=== PATIENT | female | born 1960 | race Caucasian/White ===

== ENCOUNTER 2017-08-13 16:27 | Emergency (ER) | payer OTHER, SELFPAY ==
[2017-08-13 16:38] VITALS: BP 137/77; PULSE 84; RESP 18; TEMP 36.8; O2SAT 99; BMI 22.6
--- NOTE | 2017-08-13 16:43 | DI.RAD.S_ITS ---
PROCEDURE: XR FOOT RT MIN 3V INDICATIONS: crush injury TECHNIQUE: 3 views of the foot were acquired. COMPARISON: None. FINDINGS: Bones: No dislocations. No suspicious bony lesions. There is a mildly comminuted but only minimally displaced set of fractures involving the distal phalanx of the first toe, best seen on the lateral and AP views of the digits. More proximally the hindfoot, midfoot and forefoot visualized appears free of appreciable dramatic injury. Soft tissues: No tibiotalar joint effusion. Achilles tendon appears normal. IMPRESSION: Longitudinal fractures, minimally displaced, involves the distal phalanx of the great toe. No additional injury found. Dictated by: Leonardo Licea M.D. on 08/13/2017 at 17:15 Approved by: Leonardo Licea M.D. on 08/13/2017 at 17:16
--- NOTE | 2017-08-13 17:54 | ED_ITS ---
HPI - Extremity Injury (Lower) <Oksana Echavarria PA-C - Last Filed: 08/13/17 22:15> General Chief Complaint: Extremity Injury, Lower Stated Complaint: RT FOOT INJURY Time Seen by Provider: 08/13/17 17:32 Source: patient Mode of arrival: ambulatory Limitations: no limitations History of Present Illness HPI Narrative: This generally healthy 57-year-old female dropped a large piece of pottery on her right foot shortly prior to arrival and has had pain since. Pain increases with any movement or trying to bear weight. She denies any other injury. She denies any paresthesia or weakness in the foot and states movement is limited due to pain Related Data Previous Rx's Medication Instructions Recorded ondansetron [Zofran ODT] 4 mg PO Q6H PRN #10 tab 08/13/17 tramadol 50 mg PO Q6H PRN #10 tab 08/13/17 Allergies Allergy/AdvReac Type Severity Reaction Status Date / Time Sulfa (Sulfonamide Allergy Verified 08/13/17 16:42 Antibiotics) Review of Systems <SRINIVAS Izaguirre Last Filed: 08/13/17 22:15> Review of Systems All systems reviewed & are unremarkable except as noted in HPI and below Exam <Oksana Echavarria PA-C - Last Filed: 08/13/17 22:15> Narrative Exam Narrative: GENERAL APPEARANCE: Patient sitting comfortably, in no distress. LUNGS: Clear to auscultation bilaterally. HEART: Rate and rhythm regular without murmur, normal S1 and S2, no S3 or S4. MUSCULOSKELETAL: There is no effusion over the right foot or ankle, but right great toe is moderately edematous. She has no point tenderness over the right ankle or metatarsals. She is exquisitely tender over the right great toe mid to distal, no point tenderness elsewhere. She has limited great toe pointer and dorsiflexion secondary to tenderness. She has full range of motion of the ankle. NEUROVASCULAR: Right foot is warm and pink with brisk cap refill, pedal pulses intact and sensation grossly intact DERM: Eccymoses over R. great toe pad Initial Vital Signs Initial Vital Signs: Vital Signs Temperature 98.3 F 08/13/17 16:38 Pulse Rate 84 08/13/17 16:38 Respiratory Rate 18 08/13/17 16:38 Blood Pressure 137/77 H 08/13/17 16:38 Pulse Oximetry 99 08/13/17 16:38 <Casimiro Tamayo MD - Last Filed: 08/14/17 03:13> Initial Vital Signs Initial Vital Signs: Vital Signs Temperature 98.3 F 08/13/17 16:38 Pulse Rate 84 08/13/17 16:38 Respiratory Rate 18 08/13/17 16:38 Blood Pressure 137/77 H 08/13/17 16:38 Pulse Oximetry 99 08/13/17 16:38 Course <Oksana Echavarria PA-C - Last Filed: 08/13/17 22:15> Orders Ordered: Discontinued Medications Ibuprofen (Advil) 800 mg PO NOW ONE Stop: 08/13/17 17:55 Last Admin: 08/13/17 18:02 Dose: 800 mg Vital Signs - 8 hr 08/13/17 16:38 Temperature 98.3 F Pulse Rate 84 Respiratory Rate 18 Blood Pressure 137/77 H Pulse Oximetry 99 <Casimiro Tamayo MD - Last Filed: 08/14/17 03:13> Orders Ordered: Discontinued Medications Ibuprofen (Advil) 800 mg PO NOW ONE Stop: 08/13/17 17:55 Last Admin: 08/13/17 18:02 Dose: 800 mg Vital Signs - 8 hr 08/13/17 16:38 Temperature 98.3 F Pulse Rate 84 Respiratory Rate 18 Blood Pressure 137/77 H Pulse Oximetry 99 MDM - Extremity Injury (Lower) <Oksana Echavarria PA-C - Last Filed: 08/13/17 22:15> Imaging Data extremity: Radiologist's impression: View Report History [address] [address] XRay Report Signed Patient: SANDEEP MIRANDA MR#: [id number] : 1960 Acct:[id number] Age/Sex: 57 / F Date of Service: 08/13/17 Loc: ED Accession Number: [id number] Procedure: XR foot RT min 3V Ordering Provider: Shalini Zepeda D.O. PROCEDURE: XR FOOT RT MIN 3V INDICATIONS: crush injury TECHNIQUE: 3 views of the foot were acquired. COMPARISON: None. FINDINGS: Bones: No dislocations. No suspicious bony lesions. There is a mildly comminuted but only minimally displaced set of fractures involving the distal phalanx of the first toe, best seen on the lateral and AP views of the digits. More proximally the hindfoot, midfoot and forefoot visualized appears free of appreciable dramatic injury. Soft tissues: No tibiotalar joint effusion. Achilles tendon appears normal. IMPRESSION: Longitudinal fractures, minimally displaced, involves the distal phalanx of the great toe. No additional injury found. Dictated by: Leonardo Licea M.D. on 08/13/2017 at 17:15 Approved by: Leonardo Licea M.D. on 08/13/2017 at 17:16 Discharge Plan Departure Patient Disposition: Home, Self-Care Clinical Impression: Closed fracture of great toe of right foot Discharge Date/Time: 08/13/17 18:59 Interventions: ED Discharge Assessment Last Done: 08/13/17 18:59 Instructions: DI for Toe Fracture Activity Restrictions/Additional Instructions: Keep your 2nd and big toes taped together at all times. You may wish to put some cotton or gauze in between. Wear the orthopedic shoe whenever your bearing weight. Continue ice as helpful. Continue ibuprofen 3-4 tablets every 8 hr for the next couple of days, then 2 tablets every 8 hr as needed. I have given you some prescription pain medicine (do not take it and drive) to use as needed for the next day or so, as well as some nausea medicine to take beforehand if needed. Please return if you have any acutely worsening symptoms as we talked about, otherwise please call Podiatry at [facility] on Wednesday and let them know you were seen in the emergency room and would like to schedule follow-up for a toe fracture. Prescriptions: New tramadol 50 mg tablet 50 mg PO Q6H PRN (Reason: toe pain) Qty: 10 RF: 0 ondansetron [Zofran ODT] 4 mg tablet,disintegrating 4 mg PO Q6H PRN (Reason: nausea ) Qty: 10 RF: 0 Referrals: [facility] [Provider Group] <Casimiro Tamayo MD - Last Filed: 08/14/17 03:13> Cosign ED Attending Floresature Attestation: I was available in the ER department for consultation and assistance if necessary. I agree with the content of the note and the treatment plan.
[2017-08-13] MEDS: IBUPROFEN 400 MG TABLET 800 MG PO (18:02)
== END 2017-08-13 18:59 | disposition home or self-care (01) ==
PROVIDERS: Emergency Provider Internal Medicine
DX: S92.401A Displaced unspecified fracture of right great toe, initial encounter for closed fracture (principal); W23.0XXA Caught, crushed, jammed, or pinched between moving objects, initial encounter
CPT/HCPCS: 73630; 99282; 99283

== ENCOUNTER → 2018-04-12 07:29 | Outpatient (CLI) | payer OTHER, SELFPAY ==
[2018-04-12 08:58] LABS: Add Manual Diff / Slide Review NO; Basophils Absolute Auto 0 /uL (0-100); Basophils Percent Auto 0.7 % (0-2); Eosinophils Absolute Auto 200 /uL (0-450); Eosinophils Percent Auto 4.3 % (2-4); Hematocrit 45.8 % (36-46); Hemoglobin 15.1 g/dL (12.0-16.0); Lymphocytes Absolute Auto 900 /uL (1100-4500); Lymphocytes Percent Auto 21.9 % (25-40); Mean Corpuscular Volume 93.8 fL (80-100); Monocytes Absolute Auto 300 /uL (0-900); Monocytes Percent Auto 7.7 % (3-14); Neutrophils Absolute Auto 2800 /uL (1500-7000); Neutrophils Percent Auto 65.4 % (50-75); Platelet Count 249 X10^3/uL (150-400); Red Blood Cell Count 4.88 X10^6/uL (4.0-5.2); Red Cell Distribution Width 13.1 % (11.6-14.8); White Blood Cell Count 4.2 X10^3/uL (4.5-11.0)
[2018-04-12 09:17] LABS: Alanine Aminotransferase 33 IU/L (9-52); Albumin 4.5 g/dL (3.5-5.0); Albumin Globulin Ratio 1.4 (1.0-2.8); Alkaline Phosphatase 60 U/L (38-126); Aspartate Aminotransferase 26 IU/L (14-36); BUN Creatinine Ratio 22.2 (6-22); Bilirubin Total 0.6 mg/dL (0.2-1.3); Blood Urea Nitrogen 20 mg/dL (7-17); Calcium 9.5 mg/dL (8.4-10.2); Carbon Dioxide 31 mmol/L (22-32); Chloride 103 mmol/L (98-107); Cholesterol 172 mg/dL (140-199); Estimated Glomerular Filt Rate > 60.0 mL/min (>60); Globulin 3.2 g/dL (1.7-4.1); Glucose 99 mg/dL (70-100); HDL Cholesterol 61 mg/dL (40-60); HEMOLYSIS < 15 (0-50); LDL Cholesterol Calculated 97 mg/dL (<100); Potassium 3.9 mmol/L (3.4-5.1); Sodium 141 mmol/L (137-145); Total Protein 7.7 g/dL (6.3-8.2); Triglycerides 72 mg/dL (35-150)
== END ==
DX: Z13.228 Encounter for screening for other metabolic disorders (principal); Z13.220 Encounter for screening for lipoid disorders; Z13.0 Encounter for screening for diseases of the blood and blood-forming organs and certain disorders involving the immune mechanism; Z13.29 Encounter for screening for other suspected endocrine disorder
CPT/HCPCS: 36415; 80053; 80061; 84443; 85025

== ENCOUNTER → 2018-04-13 09:53 | Outpatient (CLI) | payer OTHER, SELFPAY | DX: M85.852 Other specified disorders of bone density and structure, left thigh (principal); Z78.0 Asymptomatic menopausal state; K92.9 Disease of digestive system, unspecified | CPT/HCPCS: 77080 ==

== ENCOUNTER → 2019-10-02 13:49 | Outpatient (CLI) | payer OTHER, SELFPAY ==
--- NOTE | 2019-10-02 13:50 | DI.RAD.S_ITS ---
PROCEDURE: XR HAND LT MIN 3V INDICATIONS: pull injury, swelling/pain 2nd metacarpal and phalanx TECHNIQUE: 3 views of the hand(s) acquired. COMPARISON: None. FINDINGS: Bones: No fractures or dislocations. Carpal bones are normally aligned. No suspicious bony lesions. Soft tissues: No suspicious soft tissue calcifications. IMPRESSION: No trauma found. Dictated by: Leonardo Licea M.D. on 10/02/2019 at 14:11 Approved by: Leonardo Licea M.D. on 10/02/2019 at 14:12
== END ==
PROVIDERS: Referring Provider Physician Assistant; Visit Provider Physician Assistant
DX: S69.92XA Unspecified injury of left wrist, hand and finger(s), initial encounter (principal); X50.0XXD Overexertion from strenuous movement or load, subsequent encounter
CPT/HCPCS: 73130

== ENCOUNTER → 2019-11-21 07:46 | Outpatient (CLI) | payer OTHER, SELFPAY | PROVIDERS: Referring Provider Internal Medicine; Visit Provider Internal Medicine | DX: Z23 Encounter for immunization (principal) | CPT/HCPCS: 90471; 90686 ==

== ENCOUNTER → 2021-07-30 07:10 | Outpatient (CLI) | payer OTHER, SELFPAY ==
[2021-07-30 07:36] LABS: Add Manual Diff / Slide Review NO; Basophils Absolute Auto 0 /uL (0-100); Basophils Percent Auto 0.7 % (0-2); Eosinophils Absolute Auto 100 /uL (0-450); Eosinophils Percent Auto 3.3 % (2-4); Hematocrit 41.3 % (36-46); Hemoglobin 13.9 g/dL (12.0-16.0); Lymphocytes Absolute Auto 1100 /uL (1100-4500); Lymphocytes Percent Auto 27.8 % (25-40); Mean Corpuscular HGB Conc 33.6 % (30-36); Mean Corpuscular Volume 92.3 fL (80-100); Monocytes Absolute Auto 300 /uL (0-900); Monocytes Percent Auto 8.7 % (3-14); Neutrophils Absolute Auto 2300 /uL (1500-7000); Neutrophils Percent Auto 59.5 % (50-75); Platelet Count 232 X10^3/uL (150-400); Red Blood Cell Count 4.47 X10^6/uL (4.0-5.2); Red Cell Distribution Width 12.9 % (11.6-14.8); White Blood Cell Count 3.9 X10^3/uL (4.5-11.0)
[2021-07-30 07:48] LABS: Erythrocyte Sedimentation Rate 5 MM/HR (0-20)
[2021-07-30 08:04] LABS: Alanine Aminotransferase 24 IU/L (<35); Albumin 4.3 g/dL (3.5-5.0); Albumin Globulin Ratio 1.5 (1.0-2.8); Alkaline Phosphatase 69 U/L (38-126); Aspartate Aminotransferase 30 IU/L (14-36); BUN Creatinine Ratio 25.8 (6-22); Bilirubin Total 0.7 mg/dL (0.2-1.3); Blood Urea Nitrogen 23 mg/dL (7-17); C-Reactive Protein Quant < 0.5 mg/dL (<1.0); Calcium 8.9 mg/dL (8.4-10.2); Carbon Dioxide 28 mmol/L (22-32); Chloride 105 mmol/L (98-107); Cholesterol 191 mg/dL (140-199); Estimated Glomerular Filt Rate > 60 mL/min (>60); Globulin 2.9 g/dL (1.7-4.1); Glucose 104 mg/dL (80-110); HDL Cholesterol 81 mg/dL (40-60); HEMOLYSIS < 15 (0-50); LDL Cholesterol Calculated 96 mg/dL (<100); Sodium 139 mmol/L (137-145); Total Protein 7.2 g/dL (6.3-8.2); Triglycerides 68 mg/dL (35-150)
[2021-07-30 08:43] LABS: Thyroid Stimulating Hormone 1.58 uIU/mL (0.47-4.68)
[2021-08-01 17:05] LABS: ANA Screen, IFA Negative (.)
== END ==
PROVIDERS: PCP Physician Assistant; Referring Provider Physician Assistant; Visit Provider Physician Assistant
DX: R68.2 Dry mouth, unspecified (principal); H04.123 Dry eye syndrome of bilateral lacrimal glands; K62.89 Other specified diseases of anus and rectum; G89.29 Other chronic pain; Z13.220 Encounter for screening for lipoid disorders
CPT/HCPCS: 36415; 80053; 80061; 84443; 85025; 85651; 86038; 86140

== ENCOUNTER → 2021-08-04 08:03 | Outpatient (CLI) | payer OTHER, SELFPAY ==
[2021-08-04 12:23] LABS: Sample 1 Time DAY 1
[2021-08-04 12:24] LABS: Occult Blood 1 Negative (Negative); Occult Blood 2 Negative (Negative); Occult Blood 3 Negative (Negative); Sample 2 time DAY 2; Sample 3 time DAY 3
== END ==
PROVIDERS: PCP Physician Assistant; Referring Provider Physician Assistant; Visit Provider Physician Assistant
DX: K62.89 Other specified diseases of anus and rectum (principal); G89.29 Other chronic pain
CPT/HCPCS: 82270

== ENCOUNTER → 2021-12-18 12:09 | Outpatient (CLI) | payer OTHER, SELFPAY ==
[2021-12-18 16:44] LABS: Estradiol, Total 23.3 pg/mL
== END ==
PROVIDERS: PCP Physician Assistant; Referring Provider Naturopath; Visit Provider Naturopath
DX: R19.7 Diarrhea, unspecified (principal); R10.9 Unspecified abdominal pain; N95.1 Menopausal and female climacteric states
CPT/HCPCS: 36415; 82670; 86003

== ENCOUNTER → 2022-02-26 07:58 | Outpatient (CLI) | payer OTHER, SELFPAY ==
[2022-02-26 08:28] LABS: Add Manual Diff / Slide Review NO; Basophils Absolute Auto 0 /uL (0-100); Basophils Percent Auto 1.4 % (0-2); Eosinophils Absolute Auto 100 /uL (0-450); Eosinophils Percent Auto 2.9 % (2-4); Hematocrit 39.6 % (36-46); Hemoglobin 13.3 g/dL (12.0-16.0); Lymphocytes Absolute Auto 1000 /uL (1100-4500); Lymphocytes Percent Auto 28.2 % (25-40); Mean Corpuscular HGB Conc 33.6 % (30-36); Mean Corpuscular Hemoglobin 30.9 PG (26-34); Mean Corpuscular Volume 91.9 fL (80-100); Monocytes Absolute Auto 300 /uL (0-900); Monocytes Percent Auto 8.9 % (3-14); Neutrophils Absolute Auto 2100 /uL (1500-7000); Neutrophils Percent Auto 58.6 % (50-75); Platelet Count 243 X10^3/uL (150-400); Red Blood Cell Count 4.31 X10^6/uL (4.0-5.2); Red Cell Distribution Width 12.3 % (11.6-14.8); White Blood Cell Count 3.6 X10^3/uL (4.5-11.0)
[2022-02-26 09:10] LABS: Estradiol, Total 16.6 pg/mL
[2022-02-26 09:19] LABS: Ferritin 37 ng/mL (11-264)
[2022-02-26 09:51] LABS: Folate 18.7 ng/mL (2.76-20.0); Vitamin B12 300 pg/mL (239-931)
[2022-03-04 20:53] LABS: Estrogen 141 pg/mL (40-244)
== END ==
PROVIDERS: PCP Physician Assistant; Referring Provider Naturopath; Visit Provider Naturopath
DX: N95.1 Menopausal and female climacteric states (principal); R51.9 Headache, unspecified; R79.9 Abnormal finding of blood chemistry, unspecified
CPT/HCPCS: 36415; 82607; 82670; 82672; 82728; 82746; 85025

== ENCOUNTER → 2022-10-14 08:13 | Outpatient (CLI) | payer OTHER, SELFPAY ==
[2022-10-14 09:19] LABS: Estimated Glomerular Filt Rate > 60 mL/min (>60)
== END ==
PROVIDERS: Radiology Diagnostic Radiology; PCP Acupuncturist; Referring Provider Acupuncturist; Visit Provider Acupuncturist
DX: R10.32 Left lower quadrant pain (principal)
CPT/HCPCS: 36415; 82565

== ENCOUNTER → 2022-10-15 08:03 | Outpatient (CLI) | payer OTHER, SELFPAY ==
--- NOTE | 2022-10-15 | DI.CT.S_ITS ---
PROCEDURE: CT ABDOMEN PELVIS W CON INDICATIONS: Left lower quadrant pain TECHNIQUE: After the administration of oral and intravenous contrast, axial sections were acquired from the lung bases to the pubic symphysis. Coronal and sagittal reformats were performed. For radiation dose reduction, the following was used: automated exposure control, adjustment of mA and/or kV according to patient size. COMPARISON: None. FINDINGS: Lung bases: No pleural effusion. ABDOMEN: Liver: A few scattered small hypodensities are present, too small to characterize. Gallbladder: Unremarkable. Biliary ducts: Unremarkable. Pancreas: Unremarkable. Spleen: Unremarkable. Adrenal Glands: Unremarkable. 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 A 10 mm stone is present within the proximal ureter of the lower moiety. There is adjacent urothelial thickening and enhancement. Mild hydronephrosis of the inferior left moiety also present. It is unclear if/where the two left ureters converge. No right hydronephrosis. A few punctate nonobstructing right renal stones also present. Stomach and Bowel: No bowel obstruction. Moderate predominantly sigmoid colonic diverticulosis without evidence of acute diverticulitis. Peritoneum: No abnormal intraperitoneal fluid. No free air. Abdominal Nodes: No retroperitoneal or mesenteric adenopathy by size criteria. Vessels: Aorta and inferior vena cava are normal in size. PELVIS: Pelvic Organs: Unremarkable. Bladder: Unremarkable. Pelvic Nodes: No enlarged lymph nodes. Bones: Multilevel degenerative change of the visualized spine. 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 A 10 mm stone is present within the proximal ureter of the lower moiety with mild upstream hydronephrosis. Adjacent urothelial thickening and enhancement is present, probably reactive. It is not clear if/where the two left ureters converge, or if there is complete duplication of the left urinary system and two ureteral insertions into the urinary bladder. Dictated by: Cal Lunsford M.D. on 10/15/2022 at 14:43 Approved by: Cal Lunsford M.D. on 10/15/2022 at 15:09
== END ==
PROVIDERS: PCP Acupuncturist; Referring Provider Acupuncturist; Visit Provider Acupuncturist
DX: K57.30 Diverticulosis of large intestine without perforation or abscess without bleeding (principal); N13.2 Hydronephrosis with renal and ureteral calculous obstruction; R10.32 Left lower quadrant pain
CPT/HCPCS: 74177; Q9967

== ENCOUNTER 2022-11-10 18:57 | Emergency (ER) | payer OTHER, SELFPAY ==
[2022-11-10] VITALS (9 sets, daily range): BP systolic 115–179; BP diastolic 57–99; PULSE 56–89; RESP 16; TEMP 36.9; O2SAT 91–99; BMI 24.1
--- NOTE | 2022-11-10 19:00 | ED.GENADULT ---
HPI - General Adult General Chief complaint: Urogenital-Female Stated complaint: POST SURGERY FOR KIDNEY STONES/IN PAIN Time Seen by Provider: 11/10/22 19:00 History of Present Illness HPI narrative: 62-year-old female nonsmoker with out chronic medical history presents with her in the chief complaint of worsening left lower quadrant pain. She states that she had a large kidney stone addressed by lithotripsy at [facility] on Wednesday. She is been having pain ever since discharge but it seems to be worse today. She called the on-call urologist and was instructed to come here for evaluation. She states the pain is rather persistent and without obvious provocation or palliation. She denies any radiation of her symptoms. She has nausea but denies vomiting. She is had no fever or chills. She denies any trouble urinating though does admit there was blood in it. She denies any change in bowel habits and has no constipation or diarrhea. Related Data Home Medications Medication Instructions Recorded Confirmed lifitegrast 5 % eye drops in a EYE-BOTH BID 05/14/18 11/28/21 dropperette (Xiidra) Previous Rx's Medication Instructions Recorded mupirocin 2 % topical ointment 1 applic topical BID #30 grams 02/09/19 hydrocodone 5 mg-acetaminophen 325 1 tab PO Q4-6H PRN pain #10 tabs 11/10/22 mg tablet ketorolac 10 mg tablet 10 mg PO Q6H PRN pain #14 tabs 11/10/22 ondansetron 4 mg disintegrating 4 mg PO TID-QID PRN nausea and 11/10/22 tablet vomiting #10 tabs oxycodone 5 mg tablet 5 mg PO Q6H PRN pain #10 tabs 11/10/22 pantoprazole 40 mg tablet,delayed 40 mg PO DAILY #30 tabs 11/10/22 release (Protonix) Allergies Allergy/AdvReac Type Severity Reaction Status Date / Time Sulfa (Sulfonamide Allergy Verified 11/10/22 19:05 Antibiotics) Review of Systems Review of Systems Narrative: GENERAL: Denies chills, fatigue, malaise, fever, sweats. HEENT: Denies sinus pain, ear pain, sore throat, difficulty swallowing, dizziness. RESPIRATORY: Denies dyspnea, cough, wheezing, hemoptysis, sputum. CARDIOVASCULAR: Denies chest pain, palpitations, orthopnea, edema, GASTROINTESTINAL: Denies nausea, vomiting, abdominal pain, diarrhea, constipation, melena. : See HPI MUSCULOSKELETAL: denies weakness, joint pain, or bony pain SKIN: Denies rash, skin lesions, or other NEUROLOGIC: Denies weakness, headache, numbness, change in speech, confusion, seizures, incoordination. PSYCHIATRIC: No concerning psychosocial issues. 12 point review of systems is negative except for those stated above Patient History Medical History Healthy female Injury of left hand Social History Smoking Status: Never smoker Smoking Status: Never smoker alcohol intake frequency: holidays/special occasions only Substance Use Type: does not use Exam Narrative Exam Narrative: GENERAL: [62] year old patient appears stated age. Well-developed patient, in mild distress. HEAD: Atraumatic. Normocephalic. EYES: Pupils equal round and reactive. Extraocular motions intact. No scleral icterus. No injection or drainage. ENT: Nose without bleeding, purulent drainage. Throat without erythema, tonsillar hypertrophy or exudate. Airway patent. NECK: Trachea midline. Non tender CARDIOVASCULAR: Regular rate and rhythm without murmurs, gallops, or rubs. RESPIRATORY: Clear to auscultation. Breath sounds equal bilaterally. No wheezes, rales, or rhonchi. GASTROINTESTINAL: Abdomen soft, non-tender, nondistended. EXTREMITIES: No edema or joint tenderness. BACK: Nontender without deformity or crepitance. No flank tenderness. NEURO: AOx3. SKIN: No rash or erythema of visible areas Initial Vital Signs Initial Vital Signs: Vital Signs Temperature 98.4 F 11/10/22 19:03 Pulse Rate 89 11/10/22 19:03 Respiratory Rate 16 11/10/22 19:03 Blood Pressure 179/99 H 11/10/22 19:03 Pulse Oximetry 97 11/10/22 19:03 Oxygen Delivery Method Room Air 11/10/22 19:03 Course Orders Ordered: ED Orders 11/10/22 19:10 Complete Blood Count AUTO DIFF Stat Comprehensive Metabolic Panel Stat 11/10/22 19:12 CT kidney ureter bladder (KUB) Stat 11/10/22 20:51 Urine Culture Stat Urine Microscopic Stat Discontinued Medications Hydromorphone HCl (Hydromorphone 0.5 Mg Inj) 0.5 mg IV NOW ONE Stop: 11/10/22 19:13 Last Admin: 11/10/22 19:20 Dose: 0.5 mg Documented By: MIGUEL ANGEL Sodium Chloride (Normal Saline 0.9%) 1,000 mls @ 1,000 mls/hr IV BOLUS ONE Stop: 11/10/22 21:17 Last Infusion: 11/10/22 22:36 Dose: 0 mls/hr Documented By: MIGUEL ANGEL Admin: 11/10/22 20:52 Dose: 1,000 mls/hr Documented By: MIGUEL ANGEL Ketorolac Tromethamine (Ketorolac 30 Mg/Ml Vial) 15 mg IV NOW ONE Stop: 11/10/22 19:13 Last Admin: 11/10/22 19:20 Dose: 15 mg Documented By: MIGUEL ANGEL Ondansetron HCl (Ondansetron 4 Mg/2 Ml Inj) 4 mg IV NOW ONE Stop: 11/10/22 20:14 Last Admin: 11/10/22 20:17 Dose: 4 mg Documented By: PASHA Ondansetron HCl (Ondansetron 4 Mg Odt Prepack) 1 bottle MISC SEEINSTR ONE Stop: 11/10/22 22:12 Last Admin: 11/10/22 22:24 Dose: 1 bottle Documented By: MIGUEL ANGEL Pantoprazole Sodium (Pantoprazole 40 Mg Vial) 40 mg IV NOW ONE Stop: 11/10/22 21:14 Last Admin: 11/10/22 21:20 Dose: 40 mg Documented By: MIGUEL ANGEL Vital Signs Vital signs: Vital Signs - 8 hr 11/10/22 19:03 11/10/22 19:46 11/10/22 20:00 Temperature 98.4 F Pulse Rate 89 60 Respiratory Rate 16 Blood Pressure 179/99 H 115/67 Pulse Oximetry 97 95 Oxygen Delivery Method Room Air 11/10/22 20:00 11/10/22 20:30 11/10/22 21:00 Temperature Pulse Rate 57 L 72 56 L Respiratory Rate Blood Pressure Pulse Oximetry 91 97 91 Oxygen Delivery Method 11/10/22 21:19 11/10/22 21:19 11/10/22 21:30 Temperature Pulse Rate 70 Respiratory Rate Blood Pressure 122/57 L 124/64 Pulse Oximetry 99 Oxygen Delivery Method 11/10/22 21:30 11/10/22 22:00 11/10/22 22:00 Temperature Pulse Rate 59 L 68 Respiratory Rate 16 Blood Pressure 116/58 L Pulse Oximetry 91 96 Oxygen Delivery Method 11/10/22 22:30 11/10/22 22:30 Temperature Pulse Rate 82 Respiratory Rate 16 Blood Pressure 119/77 Pulse Oximetry 98 Oxygen Delivery Method Medical Decision Making Lab Data 11/10/22 19:10 11/10/22 19:10 Labs: Lab Results 11/10/22 11/10/22 11/10/22 Range/Units 19:10 19:10 20:51 WBC 5.6 (4.5-11.0) X10^3/uL RBC 4.39 (4.0-5.2) X10^6/uL Hgb 13.6 (12.0-16.0) g/dL Hct 39.9 (36-46) % MCV 90.9 (80-100) fL MCH 31.1 (26-34) PG MCHC 34.2 (30-36) % RDW 12.4 (11.6-14.8) % Plt Count 250 (150-400) X10^3/uL Neut % (Auto) 46.7 L (50-75) % Lymph % (Auto) 40.3 H (25-40) % [place] % (Auto) 8.5 (3-14) % Eos % (Auto) 3.4 (2-4) % Baso % (Auto) 1.1 (0-2) % Neut # (Auto) 2600 (0820-7725) /uL Lymph # (Auto) 2300 (4276-1468) /uL [place] # (Auto) 500 (0-900) /uL Eos # (Auto) 200 (0-450) /uL Baso # (Auto) 100 (0-100) /uL Sodium 136 L (137-145) mmol/L Potassium 4.4 (3.4-5.1) mmol/L Chloride 104 (98-107) mmol/L Carbon Dioxide 23 (22-32) mmol/L BUN 28 H (7-17) mg/dL Creatinine 0.92 (0.52-1.04) mg/dL Estimated GFR > 60 (>60) mL/min BUN/Creatinine Ratio 30.4 H (6-22) Glucose 94 (80-110) mg/dL Calcium 9.7 (8.4-10.2) mg/dL Total Bilirubin 0.5 (0.2-1.3) mg/dL AST 42 H (14-36) IU/L ALT 36 H (<35) IU/L Alkaline Phosphatase 92 (38-126) U/L Total Protein 7.7 (6.3-8.2) g/dL Albumin 4.4 (3.5-5.0) g/dL Globulin 3.3 (1.7-4.1) g/dL Albumin/Globulin Ratio 1.3 (1.0-2.8) Urine RBC 10-30/hpf H (0-5/HPF) Urine WBC 5-10/hpf H (0-5/HPF) Ur Squamous Epith Cells None seen (0-5/HPF) Urine Bacteria Occasional (0-1) (None) Ur Culture Indicated? Specimen cultured Urine Dip Bedside Urine Glucose Negative Bedside Urine Bilirubin - Negative Bedside Urine Ketone - Negative Urine Specific [place] 1.010 Bedside Urine Occult Blood +++ Bedside Urine pH 6.0 Bedside Urine Protein + 30 Bedside Urine Urobilinogen - Negative Bedside Urine Nitrite + Positive Bedside Urine Leukocytes + 70 Esterase Point of care testing: Urine Dip Bedside Urine Glucose Negative Bedside Urine Bilirubin - Negative Bedside Urine Ketone - Negative Urine Specific [place] 1.010 Bedside Urine Occult Blood +++ Bedside Urine pH 6.0 Bedside Urine Protein + 30 Bedside Urine Urobilinogen - Negative Bedside Urine Nitrite + Positive Bedside Urine Leukocytes + 70 Esterase MDM Narrative Medical decision making narrative: [62] year old patient presents with left lower quadrant pain Multiple etiologies for patient's symptoms considered including, but not limited to: [Postsurgical complication, kidney stone versus UTI versus other] Prior Charts reviewed in our EMR Primary Historian: patient Labs reviewed and interpreted by myself: No leukocytosis or left shift, no signs of anemia, electrolytes and renal function within normal. RBCs 10-30, WBC 5-10 Imaging reviewed: CT KUB with moderate hydro without obstructing stone noted. Consultations: discussed with congressional representative urology at [facility] ([place]). We have discussed the patient's history and physical exam as well as our findings including the urine, serum labs and imaging. We sure the opinion that this is all very reassuring, there is no sign of infection or need for further intervention, her pain is well controlled, she is tolerating orals and the small level of WBCs in the urine is not uncommon after recent procedure, he recommends against antibiotics at this time. Patient's symptoms improved over duration of stay with above-stated therapies. Findings and discharge diagnosis discussed with patient/family followed by verbalization of understanding Return precautions discussed with patient/family whom verbalize understanding of diagnosis and plan Discharge Plan Departure Patient Disposition: Home Clinical Impression: Acute flank pain Instructions: DI for Flank Pain Activity Restrictions/Additional Instructions: *You have been diagnosed with [left flank pain. As we discussed your labs and imaging are reassuring. I spoke with on-call Urology at [facility] and he too is comfortable with you going home at this point with follow-up] *What to do: *Please continue to take your regular medications as directed. [x ] New medication prescriptions sent to your pharmacy: [[facility] ] [ ] New medication written as a paper prescription [ ] No new medications given *Please follow up with your urology care provider in 2-3 days, call for an appointment. Let them know you were seen in the Emergency Department and that we ask that you be seen in follow up. We will electronically transmit a record of today's note if your PCP is in our system *Return to Emergency Department if you should have any new, worsening or concerning symptoms, such as [fever greater than 101 F, shaking chills, worsening pain, persistent vomiting or other bothersome symptoms] Prescriptions: New hydrocodone-acetaminophen 5-325 mg tablet 1 tab PO Q4-6H PRN (Reason: pain) Qty: 10 0RF ketorolac 10 mg tablet 10 mg PO Q6H PRN (Reason: pain) Qty: 14 0RF pantoprazole [Protonix] 40 mg tablet,delayed release (DR/EC) 40 mg PO DAILY Qty: 30 0RF oxycodone 5 mg tablet 5 mg PO Q6H PRN (Reason: pain) Qty: 10 0RF ondansetron 4 mg tablet,disintegrating 4 mg PO TID-QID PRN (Reason: nausea and vomiting) Qty: 10 0RF No Action Xiidra 5 % dropperette EYE-BOTH BID mupirocin 2 % ointment 1 applic TOP BID Qty: 30 0RF Referrals: Vicki Morales ND [Primary Care Provider] - Stand Alone Forms: Patient Portal/API
--- NOTE | 2022-11-10 19:12 | DI.CT.S_ITS ---
PROCEDURE: CT KIDNEY URETER BLADDER (KUB) INDICATIONS: severe LLQ pain, recent lithotripsy TECHNIQUE: Axial sections were acquired from the lung bases to the pubic symphysis. Coronal and sagittal reformats were performed. For radiation dose reduction, the following was used: automated exposure control, adjustment of mA and/or kV according to patient size. COMPARISON: None. FINDINGS: Image quality: Excellent. Lung bases: Unremarkable. Heart: No significant findings. URINARY: Right Kidney: Moderate burden punctate, nonobstructing stones. No hydronephrosis. Right Ureter: No hydroureter. Left Kidney: Small burden of punctate, nonobstructing stones. Duplicated renal collecting system. The superior moiety does not have hydronephrosis. There is moderate hydronephrosis the inferior moiety. Left Ureter: Moderate hydronephrosis of the lower moiety, but no obstructing mass identified. Possible ectopic insertion the left ureter, although this is not confirmed on this noncontrast study. Bladder: Normal wall thickness. No stones. ABDOMEN: Liver: Unremarkable. Gallbladder: Unremarkable. Biliary ducts: Unremarkable. Pancreas: Unremarkable. Spleen: Unremarkable. Adrenal Glands: Unremarkable. Stomach and Bowel: Colonic diverticulosis without evidence of diverticulitis. Peritoneum: No abnormal intraperitoneal fluid. No free air. Ventral Wall: No hernia. Abdominal Nodes: No enlarged retroperitoneal or mesenteric lymph nodes. Vessels: Aorta and inferior vena cava are normal in size. PELVIS: Pelvic Organs: Unremarkable. Pelvic Nodes: Unremarkable. Miscellaneous: No inguinal hernias are seen. Bones: Unremarkable. 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 There is moderate hydronephrosis and hydroureter of the lower moiety, without obstructing stone present. Differential includes recently passed stones or infection. Dictated by: Eddie Small M.D. on 11/10/2022 at 20:00 Approved by: Eddie Small M.D. on 11/10/2022 at 20:06
[2022-11-10] MEDS: HYDROMORPHONE 0.5 MG INJ IV (19:20)
[2022-11-10] MEDS: KETOROLAC 30 MG/ML VIAL 15 MG IV (19:20)
[2022-11-10 19:24] LABS: Add Manual Diff / Slide Review NO; Basophils Absolute Auto 100 /uL (0-100); Basophils Percent Auto 1.1 % (0-2); Eosinophils Absolute Auto 200 /uL (0-450); Eosinophils Percent Auto 3.4 % (2-4); Hematocrit 39.9 % (36-46); Hemoglobin 13.6 g/dL (12.0-16.0); Lymphocytes Absolute Auto 2300 /uL (1100-4500); Lymphocytes Percent Auto 40.3 % (25-40); Mean Corpuscular HGB Conc 34.2 % (30-36); Mean Corpuscular Hemoglobin 31.1 PG (26-34); Mean Corpuscular Volume 90.9 fL (80-100); Monocytes Absolute Auto 500 /uL (0-900); Monocytes Percent Auto 8.5 % (3-14); Neutrophils Absolute Auto 2600 /uL (1500-7000); Neutrophils Percent Auto 46.7 % (50-75); Platelet Count 250 X10^3/uL (150-400); Red Blood Cell Count 4.39 X10^6/uL (4.0-5.2); Red Cell Distribution Width 12.4 % (11.6-14.8); White Blood Cell Count 5.6 X10^3/uL (4.5-11.0)
--- NOTE | 2022-11-10 19:29 | PC.NURSE ---
pt had lithotripsy done Wed, 1st she has had one, she has been taking her meds at home without relief, pt did not get her narcotic rx filled as she was told she wouldn't hurt that bad, pt states the pain increased in severity tonight
[2022-11-10 19:42] LABS: Alanine Aminotransferase 36 IU/L (<35); Albumin 4.4 g/dL (3.5-5.0); Albumin Globulin Ratio 1.3 (1.0-2.8); Alkaline Phosphatase 92 U/L (38-126); Aspartate Aminotransferase 42 IU/L (14-36); BUN Creatinine Ratio 30.4 (6-22); Bilirubin Total 0.5 mg/dL (0.2-1.3); Blood Urea Nitrogen 28 mg/dL (7-17); Calcium 9.7 mg/dL (8.4-10.2); Carbon Dioxide 23 mmol/L (22-32); Chloride 104 mmol/L (98-107); Estimated Glomerular Filt Rate > 60 mL/min (>60); Globulin 3.3 g/dL (1.7-4.1); Glucose 94 mg/dL (80-110); HEMOLYSIS 34 (0-50); Potassium 4.4 mmol/L (3.4-5.1); Sodium 136 mmol/L (137-145); Total Protein 7.7 g/dL (6.3-8.2)
[2022-11-10] MEDS: ONDANSETRON 4 MG/2 ML INJ IV (20:17)
[2022-11-10] MEDS: SODIUM CHLORIDE 0.9% 1,000 ML 1000 ML IV (20:52)
--- NOTE | 2022-11-10 21:00 | PC.NURSE ---
assisted pt to bathroom in [place], pain relieved pt nauseated
[2022-11-10 21:02] LABS: Bacteria Urine Occasional (0-1); Culture Indicated Urine Specimen Cultured; RBC Urine 10-30/HPF (0-5/HPF); Squamous Epithelial Cell Urine None Seen (0-5/HPF); WBC Urine 5-10/HPF (0-5/HPF)
[2022-11-10] MEDS: PANTOPRAZOLE 40 MG VIAL IV (21:20)
[2022-11-10] MEDS: ONDANSETRON 4 MG ODT PREPACK 1 BOTTLE MISC (22:24)
== END 2022-11-10 22:34 | disposition home or self-care (01) ==
PROVIDERS: Emergency Provider Emergency Medicine; PCP Acupuncturist
DX: R10.32 Left lower quadrant pain (principal); Z87.442 Personal history of urinary calculi
CPT/HCPCS: 36415; 74176; 80053; 81003; 81015; 85025; 87086; 96361; 96374; 96375; 99284; C9113; J1170; J1885; J2405

== ENCOUNTER → 2022-12-17 12:09 | Outpatient (CLI) | payer OTHER, SELFPAY ==
[2022-12-17 13:38] LABS: Iron 80 ug/dL (37-170)
[2022-12-17 13:40] LABS: Alanine Aminotransferase 24 IU/L (<35); Albumin 4.2 g/dL (3.5-5.0); Albumin Globulin Ratio 1.4 (1.0-2.8); Alkaline Phosphatase 93 U/L (38-126); Aspartate Aminotransferase 29 IU/L (14-36); BUN Creatinine Ratio 38.2 (6-22); Bilirubin Total 0.5 mg/dL (0.2-1.3); Blood Urea Nitrogen 29 mg/dL (7-17); Calcium 9.7 mg/dL (8.4-10.2); Carbon Dioxide 27 mmol/L (22-32); Chloride 105 mmol/L (98-107); Estimated Glomerular Filt Rate > 60 mL/min (>60); Globulin 2.9 g/dL (1.7-4.1); Glucose 96 mg/dL (80-110); HEMOLYSIS < 15 (0-50); Potassium 4.3 mmol/L (3.4-5.1); Sodium 138 mmol/L (137-145); Total Protein 7.1 g/dL (6.3-8.2)
[2022-12-17 14:08] LABS: Ferritin 36 ng/mL (11-264)
[2022-12-17 14:39] LABS: Folate 12.9 ng/mL (2.76-20.0); Vitamin B12 806 pg/mL (239-931)
== END ==
PROVIDERS: PCP Acupuncturist; Referring Provider Acupuncturist; Visit Provider Acupuncturist
DX: Z00.00 Encounter for general adult medical examination without abnormal findings (principal); D51.9 Vitamin B12 deficiency anemia, unspecified
CPT/HCPCS: 36415; 80053; 82607; 82728; 82746; 83540; 83735

== ENCOUNTER → 2023-06-24 14:34 | Outpatient (CLI) | payer OTHER, SELFPAY ==
--- NOTE | 2023-06-24 14:36 | DI.CT.S_ITS ---
PROCEDURE: CT ABDOMEN PELVIS W CON INDICATIONS: Lower abdominal pain,history of diverticulitis TECHNIQUE: After the administration of intravenous contrast, axial sections acquired from the lung bases to the pubic symphysis. Coronal and sagittal reformats were performed. For radiation dose reduction, the following was used: automated exposure control, adjustment of mA and/or kV according to patient size. COMPARISON: [facility], CT, CT ABDOMEN PELVIS W CON, 10/15/2022, 9:42. FINDINGS: Image quality: Diagnostic. Lower Chest: No significant findings. ABDOMEN: Liver: Subcentimeter hepatic hypodensities are too small to characterize, probable cysts versus hemangiomas. Gallbladder: No radiopaque gallstones or wall thickening. Biliary ducts: No biliary dilation. Pancreas: No ductal dilation. Spleen: Size is within normal limits. Adrenal Glands: No adrenal nodules. Kidneys and Ureters: Left duplicated renal collecting system. Right punctate nonobstructing calculi. No hydronephrosis. No solid mass. No complex renal cystic lesion which requires follow up. Stomach and Bowel: Normal colonic caliber, without significant wall thickening. Colonic diverticulosis without evidence of acute inflammation. Peritoneum: No abnormal intraperitoneal fluid. No free air. Ventral Wall: No significant ventral hernia. Abdominal Nodes: No retroperitoneal or mesenteric adenopathy by size criteria. Vessels: Aorta and inferior vena cava are normal in size. PELVIS: Pelvic Organs: Unremarkable. Bladder: No bladder wall thickening, accounting for underdistention. Pelvic Nodes: No enlarged lymph nodes. Miscellaneous: No inguinal hernias are seen. Bones: No aggressive osseous abnormality. IMPRESSION: Diverticulosis without CT evidence of acute diverticulitis. Left duplicated renal collecting system. Right punctate nonobstructing nephrolithiasis. No hydronephrosis. Approved by: Joana Reeves M.D.,Ph.D. on 06/24/2023 at 17:42
== END ==
PROVIDERS: PCP Acupuncturist; Referring Provider Internal Medicine Gastroenterology; Visit Provider Internal Medicine Gastroenterology
DX: K57.90 Diverticulosis of intestine, part unspecified, without perforation or abscess without bleeding (principal); R10.30 Lower abdominal pain, unspecified; N20.0 Calculus of kidney; Q62.5 Duplication of ureter; Q63.0 Accessory kidney; Z87.19 Personal history of other diseases of the digestive system
CPT/HCPCS: 74177; Q9967

== ENCOUNTER → 2024-04-20 07:37 | Outpatient (CLI) | payer OTHER, SELFPAY ==
--- NOTE | 2024-04-20 07:39 | DI.US.S_ITS ---
PROCEDURE: US PELVIC COMPLETE INDICATIONS: POSTMENOPAUSAL VAGINAL BLEEDING TECHNIQUE: Real-time scanning was performed of the pelvic organs, with image documentation. Additional endovaginal scanning was necessary due to incomplete visualization of the adnexal and endometrial structures by transabdominal scanning. COMPARISON: None. FINDINGS: Uterus: Uterus is anteverted and normal in size at 7.0 x 3.5 x 5.3 cm. The myometrium is heterogeneous. The endometrium measures 5 mm combined thickness. Calcified arcuate vasculature. Tiny echogenic foci within the junctional zone. Ovaries: Not visualized, likely due to atrophy and overlying bowel gas. Other: No pathologic free abdominal or pelvic fluid. IMPRESSION: Endometrium measures 5 millimeters, abnormal in the setting of postmenopausal bleeding. Consider tissue sampling. Heterogeneous myometrium, including echogenic foci within the junctional zone. Findings raise the concern for diffuse adenomyosis. We strive to produce accurate, complete, and clear reports of imaging services. To assist us in improving patient care, this report was composed using standard report templates and voice recognition software. Therefore, it may contain abnormal punctuation, insertions and/or omissions. Occasional wrong-word or sound-alike substitutions may occur. Though we review the report and make efforts to correct it, we do recommend that the report be read carefully in proper context to recognize any text inaccuracies. Dictated by: Eddie Small M.D. on 04/20/2024 at 11:38 Approved by: Eddie Small M.D. on 04/20/2024 at 11:39
== END ==
PROVIDERS: Family Provider Acupuncturist
DX: R79.0 Abnormal level of blood mineral (principal); R30.0 Dysuria; N95.1 Menopausal and female climacteric states; L65.9 Nonscarring hair loss, unspecified; E63.9 Nutritional deficiency, unspecified; R53.83 Other fatigue; R39.89 Other symptoms and signs involving the genitourinary system; R21 Rash and other nonspecific skin eruption; G47.9 Sleep disorder, unspecified; E55.9 Vitamin D deficiency, unspecified; E53.9 Vitamin B deficiency, unspecified; N95.9 Unspecified menopausal and perimenopausal disorder; N95.0 Postmenopausal bleeding; R93.89 Abnormal findings on diagnostic imaging of other specified body structures
CPT/HCPCS: 76830; 76856